=== PATIENT | female | born 1975 | race African-American/Black ===

== ENCOUNTER 2018-06-18 19:33 | Emergency (ER) | payer OTHER ==
[~2018-06-18] VITALS: Ht 170.2 cm; Wt 77.1 kg
[2018-06-18 19:33] VITALS: BP 96/73
--- NOTE | 2018-06-18 19:33 | NUR ---
PT BIBA BLS, TAKEN TO BED 10
--- NOTE | 2018-06-18 19:33 | NUR ---
42/F BIBA FROM [facility]. PER EMS, PT WAS ALOC WITH ETOH INTOXICATION, COMBATIVE, BS 134, WAS PLACED ON BEHAVIORAL RESTRAINTS ON SCENE. PT CALM AND APPROPRIATE AT THIS TIME, BEHAVIORAL RESTRAINTS REMOVED. PT AOX3, SLIGHTLY ALTERED, BEDREST AT THIS TIME. PT ADMITS TO DRINKING "2 MARGARITAS 4 HOURS AGO." PT DENIES PAIN. PT DENIES CP, SOB, N/V/D. LUNGS SOUNDS CLEAR BL. ABD SOFT ROUND NONTENDER, BS ACTIVE X4. HX HTN, DEPRESSION. PLACED ON APPLICATION PROCESSOR. ER MD MADE AWARE.
--- NOTE | 2018-06-18 20:09 | NUR ---
PER SEARCH ENGINEER, PT'S FRIEND DIANA CALLED , LEFT HER NUMBER FOR TRANSPORT. MADE PT AWARE.
--- NOTE | 2018-06-18 20:41 | NUR ---
PT SLEEPING COMFORTABLY, VSS, RR EVEN AND UNLABORED. ALL NEEDS MET AT THIS TIME.
--- NOTE | 2018-06-18 20:58 | NUR ---
Dr. Orozco evaluating patient at bedside.
[2018-06-18] MEDS ORDERED: MORPHINE SULFATE 4 MG/ML SYR IVP ONE (21:55)
[2018-06-18] MEDS ORDERED: NACL 0.9% 1,000 ML IV ONE (22:05)
[2018-06-18 22:37] LABS: BASOPHILS % (AUTO) 0.3 % (0.0-2.0); EOSINOPHILS % (AUTO) 0.4 % (0.0-4.0); HEMATOCRIT 35.4 % (36-48); HEMOGLOBIN 11.5 g/dL (12.0-16.0); LYMPHOCYTES # (AUTO) 2.2 K/uL (2.5-16.5); LYMPHOCYTES % (AUTO) 27.9 % (20.5-51.1); MEAN CORPUSCULAR HEMOGLOBIN 34 pg (27-31); MEAN CORPUSCULAR HGB CONC 33 g/dL (33-37); MEAN CORPUSCULAR VOLUME 102.8 fL (80-94); MONOCYTES # (AUTO) 0.3 K/uL (0.8-1.0); MONOCYTES % (AUTO) 4.3 % (1.7-9.3); NEUTROPHILS # (AUTO) 5.3 K/uL (1.8-7.7); NEUTROPHILS % (AUTO) 67.1 % (42.2-75.2); PLATELET COUNT (AUTO) 216 K/uL (140-450); RED BLOOD CELL COUNT(AUTO) 3.44 MIL/uL (4.20-5.40); RED CELL DISTRIBUTION WIDTH 13.8 % (11.6-13.7); WHITE BLOOD COUNT (AUTO) 7.9 K/uL (4.8-10.8)
[2018-06-18 22:38] LABS: ANION GAP 12.7 (8-16); CARBON DIOXIDE 27.2 mmol/L (21-32); CREATININE 0.9 mg/dL (0.6-1.3); POTASSIUM 3.9 mmol/L (3.5-5.1)
[2018-06-18 22:43] LABS: ALBUMIN 3.6 g/dL (3.4-5.0); TOTAL BILIRUBIN 0.1 mg/dL (0.0-1.0)
--- NOTE | 2018-06-18 23:10 | NUR ---
PT RESTING IN BED, VS NOTED, RR EVEN AND UNLABORED. ALL NEEDS MET AT THIS TIME.
[2018-06-19 01:10] VITALS: BP 122/88
--- NOTE | 2018-06-19 01:12 | NUR ---
Patient discharged with v/s stable. Written and verbal after care instructions given and explained. Patient alert, oriented and verbalized understanding of instructions. Ambulatory with steady gait. All questions addressed prior to discharge. ID band removed. Patient advised to follow up with PMD. Rx of NAPROSYN 500MG given. Patient educated on indication of medication including possible reaction and side effects. Opportunity to ask questions provided and answered.
== END 2018-06-19 01:12 | disposition home or self-care (01) ==
LOC: MED 19:33
DX: F10.129 Alcohol abuse with intoxication, unspecified (principal); Q65.89 Other specified congenital deformities of hip; G89.29 Other chronic pain; F32.9 Major depressive disorder, single episode, unspecified; I10 Essential (primary) hypertension
CPT/HCPCS: 36415; 72131; 80053; 81002; 81025; 85025; 96374; 99285; G0482; J2270